=== PATIENT | male | born 1990 | race Caucasian/White ===

== ENCOUNTER 2017-02-04 22:17 | Emergency (ER) | payer BC ==
[2017-02-04] MEDS ORDERED: NS 0.9% 1000 ML* 1,000 ML IV ONE (23:07)
[2017-02-04 23:53] LABS: Hematocrit 43 % (42-52); Hemoglobin 14.9 g/dl (14.0-18.0); Mean Corpuscular HGB Conc 35 g/dl (31-36); Mean Corpuscular Hemoglobin 29 pg (27-31); Mean Corpuscular Volume 83 fL (80-94); Mean Platelet Volume 9 um3 (7.4-10.4); Red Blood Count 5.12 10^6/ul (4.0-5.4); Red Cell Distribution Width 13 % (10.5-15); White Blood Count 9.2 10^3/ul (3.5-10.8)
[2017-02-05 00:09] LABS: Albumin 4.4 g/dL (3.2-5.2); BUN/Creatinine Ratio 12.4 (8-20); C Reactive Protein 1.01 mg/L (< 5.00); Calcium 9.1 mg/dL (8.6-10.3); EGFR African American 130.9 (>60); EGFR Non-African American 101.8 (>60); Globulin 2.5 g/dL (2-4); Potassium 3.1 mmol/L (3.5-5.0); Total Bilirubin 0.5 mg/dL (0.2-1.0); Total Protein 6.9 g/dL (6.4-8.9)
[2017-02-05] MEDS ORDERED: Potassium Chloride LIQUID* 20 MEQ PACKET PO ONE (00:30)
--- NOTE | 2017-02-05 00:45 | ED ---
Kati Swartz Rebecca, scribed for Jose Rafael Cui MD on 02/04/17 at 2308 . Abdominal Pain/Male - HPI Summary HPI Summary: Pt is a 26 y/o M who presents to ED c/o R-sided abdominal pain. Pain began gradually at approximately 2130 tonight while laying in bed and is now resolved after lasting for about 25 minutes. Pain was described as severe R-sided cramping that felt "like my abdomen was exploding." Sx aggravated by nothing, alleviated by spontaneous resolution. Denies N/V/D. No prior similar episodes that were as severe as this episode. Confirms that he felt well this morning. - History of Current Complaint Chief Complaint: EDAbdPain Stated Complaint: SEVERE ABD CRAMPS Time Seen by Provider: 02/04/17 23:02 Hx Obtained From: Patient Onset/Duration: Gradual Onset, Lasting Minutes - 25 minutes, Resolved Severity Initially: Severe Severity Currently: None Pain Intensity: 0 Pain Scale Used: 0-10 Numeric Location: Other - R-sided Character: Cramping Aggravating Factor(s): Nothing Alleviating Factor(s): Spontaneous Resolution Associated Signs And Symptoms: Positive: Negative. 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 Negative: Vomiting, Diarrhea, Nausea All Other Systems Reviewed And Are Negative: Yes Physical Exam Triage Information Reviewed: Yes Vital Signs On Initial Exam: Initial Vitals Temp Pulse Resp BP Pulse Ox 98.8 F 96 18 119/82 98 02/04/17 22:28 02/04/17 22:28 02/04/17 22:28 02/04/17 22:28 02/04/17 22:28 Vital Signs Reviewed: Yes Appearance: Positive: Well-Appearing, No Pain Distress Skin: Positive: Warm Head/Face: Positive: Normal Head/Face Inspection Eyes: Positive: VIVIAN ENT: Positive: Hearing grossly normal Neck: Positive: Supple Respiratory/Lung Sounds: Positive: Clear to Auscultation, Breath Sounds Present Cardiovascular: Positive: RRR Abdomen Description: Positive: Nontender, Soft Bowel Sounds: Positive: Present Musculoskeletal: Positive: Strength/ROM Intact Neurological: Positive: Alert, Oriented to Person Place, Time Psychiatric: Positive: Affect/Mood Appropriate Diagnostics - Vital Signs Vital Signs Temp Pulse Resp BP Pulse Ox 02/04/17 22:28 98.8 F 96 18 119/82 98 - Laboratory Result Diagrams: 02/04/17 23:45 02/04/17 23:45 Lab Statement: Any lab studies that have been ordered have been reviewed, and results considered in the medical decision making process. Re-Evaluation - Re-Evaluation First Eval Re-Evaluation Time: 00:46 Change: Improved Comment: Discussed results and D/C plan. Abdominal Pain Fem Course/Dx - Course Assessment/Plan: Pt is a 26 y/o M who presents to ED c/o R-sided abdominal pain. Pain began gradually at approximately 2130 tonight while laying in bed and is now resolved after lasting for about 25 minutes. Pain was described as severe R-sided cramping that felt "like my abdomen was exploding." Sx aggravated by nothing, alleviated by spontaneous resolution. Denies N/V/D. No prior similar episodes that were as severe as this episode. Confirms that he felt well this morning. Lactic acid of 2.1, potassium of 3.1. In the ED course, pt was administered potassium chloride and fluids. Pt will be D/C to home with Dx of abdominal pain and a follow up with his PCP. He understands and agrees. - Diagnoses Provider Diagnoses: Abdominal pain Discharge - Discharge Plan Condition: Stable Disposition: HOME Patient Education Materials: Acute Abdominal Pain (ED) Referrals: Axel Daniel MD [Primary Care Provider] - 3 Days The documentation as recorded by the Kati rocha Rebecca accurately reflects the service I personally performed and the decisions made by me, Jose Rafael Cui MD.
[2017-02-05 01:40] VITALS: BP 120/76
== END 2017-02-05 01:40 | disposition home or self-care (01) ==
LOC: ED 22:17
DX: R10.9 Unspecified abdominal pain (principal)
CPT/HCPCS: 36415; 80053; 83605; 83690; 83735; 85025; 86140; 99283; A9270-GY

== ENCOUNTER 2017-02-19 07:06 | Emergency (ER) | payer BC ==
[2017-02-19] MEDS ORDERED: Ketorolac INJ* 60 MG/2 ML VIAL IM ONE (08:04)
[2017-02-19 09:03] LABS: Hematocrit 45 % (42-52); Hemoglobin 15.6 g/dl (14.0-18.0); Mean Corpuscular HGB Conc 34 g/dl (31-36); Mean Corpuscular Hemoglobin 29 pg (27-31); Mean Corpuscular Volume 84 fL (80-94); Mean Platelet Volume 9 um3 (7.4-10.4); Red Blood Count 5.42 10^6/ul (4.0-5.4); Red Cell Distribution Width 14 % (10.5-15); White Blood Count 6.7 10^3/ul (3.5-10.8)
[2017-02-19 09:15] LABS: Albumin 4.9 g/dL (3.2-5.2); BUN/Creatinine Ratio 13.3 (8-20); C Reactive Protein 1.59 mg/L (< 5.00); Calcium 9.9 mg/dL (8.6-10.3); EGFR African American 129.2 (>60); EGFR Non-African American 100.5 (>60); Globulin 2.7 g/dL (2-4); Potassium 3.7 mmol/L (3.5-5.0); Total Bilirubin 0.7 mg/dL (0.2-1.0); Total Protein 7.6 g/dL (6.4-8.9)
--- NOTE | 2017-02-19 10:45 | RAD ---
Indication: Left hip pain. 2 views of left hip and an AP view the pelvis demonstrates pelvic ring to be intact. No fracture is identified. IMPRESSION: No fracture of left hip or pelvis is noted.
[2017-02-19 11:35] LABS: Urine Bilirubin Negative (Negative); Urine Glucose Negative (Negative); Urine Nitrite Negative (Negative)
[2017-02-19 12:07] VITALS: BP 127/88
--- NOTE | 2017-02-19 17:13 | ED ---
Zarina Swartz Edward, scribed for Clifford Skaggs MD on 02/19/17 at 0731 . Lower Extremity - HPI Summary HPI Summary: 26 y/o male presents to the ED c/o gradual onset L hip pain starting last evening and has been getting progressively worse. The pain is aggravated with standing and movement of the L leg and back. It is alleviated with heat. The pain is rated 4/10 in severity at triage. Associated sx: severe ABD pain last that resolved spontaneously after 25 minutes; pt was seen in the ED for it. Denies fever. Pt denies any injury. PMHx non alcoholic liver disease. - History of Current Complaint Stated Complaint: LEFT HIP PAIN Hx Obtained From: Patient Onset of Pain: Hours - Last evening Onset/Duration: Still Present Pain Intensity: 4 Pain Scale Used: 0-10 Numeric Location: Is Discrete @ - L hip Associated Signs And Symptoms: Positive: Abdominal Pain - Last week, spontaneous resolution. 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 Neurological History: Reports: Hx Migraine - Family History Known Family History: Negative: Cardiac Disease, Hypertension, Diabetes - Social History Alcohol Use: None Hx Substance Use: No Substance Use Type: Reports: None Hx Tobacco Use: No Smoking Status (MU): Never Smoked Tobacco Review of Systems Constitutional: Negative Negative: Fever Eyes: Negative ENT: Negative Cardiovascular: Negative Respiratory: Negative Positive: Abdominal Pain Genitourinary: Negative Positive: Arthralgia - L hip pain Skin: Negative Neurological: Negative Psychological: Normal All Other Systems Reviewed And Are Negative: Yes Physical Exam Triage Information Reviewed: Yes Vital Signs On Initial Exam: Initial Vitals Temp Pulse Resp BP Pulse Ox 97.4 F 77 15 119/80 98 02/19/17 07:15 02/19/17 07:15 02/19/17 07:15 02/19/17 07:15 02/19/17 07:15 Vital Signs Reviewed: Yes Appearance: Positive: Well-Appearing, No Pain Distress Skin: Positive: Warm, Skin Color Reflects Adequate Perfusion Head/Face: Positive: Normal Head/Face Inspection Eyes: Positive: Normal ENT: Positive: Normal ENT inspection Neck: Positive: Supple, Nontender Respiratory/Lung Sounds: Positive: Clear to Auscultation, Breath Sounds Present Cardiovascular: Positive: RRR Abdomen Description: Positive: Nontender, Soft Bowel Sounds: Positive: Present Musculoskeletal: Positive: Pain @ - Tender to any ROM of L hip. Nontender in sciatic area. Neurological: Positive: Normal Psychiatric: Positive: Normal, Affect/Mood Appropriate Diagnostics - Vital Signs Vital Signs Temp Pulse Resp BP Pulse Ox 02/19/17 12:06 98.4 F 61 16 127/88 02/19/17 07:15 97.4 F 77 15 119/80 98 - Laboratory Lab Results: Lab Results 02/19/17 02/19/17 02/19/17 Range/Units 08:25 08:25 11:05 WBC 6.7 (3.5-10.8) 10^3/ul RBC 5.42 H (4.0-5.4) 10^6/ul Hgb 15.6 (14.0-18.0) g/dl Hct 45 (42-52) % MCV 84 (80-94) fL MCH 29 (27-31) pg MCHC 34 (31-36) g/dl RDW 14 (10.5-15) % Plt Count 243 (150-450) 10^3/ul MPV 9 (7.4-10.4) um3 Neut % (Auto) 53.6 (38-83) % Lymph % (Auto) 34.6 (25-47) % [place] % (Auto) 8.1 (1-9) % Eos % (Auto) 2.6 (0-6) % Baso % (Auto) 1.1 (0-2) % Absolute Neuts (auto) 3.6 (1.5-7.7) 10^3/ul Absolute Lymphs (auto) 2.3 (1.0-4.8) 10^3/ul Absolute Monos (auto) 0.5 (0-0.8) 10^3/ul Absolute Eos (auto) 0.2 (0-0.6) 10^3/ul Absolute Basos (auto) 0.1 (0-0.2) 10^3/ul Absolute Nucleated RBC 0 10^3/ul Nucleated RBC % 0 Sodium 139 (133-145) mmol/L Potassium 3.7 (3.5-5.0) mmol/L Chloride 108 (101-111) mmol/L Carbon Dioxide 24 (22-32) mmol/L Anion Gap 7 (2-11) mmol/L BUN 12 (6-24) mg/dL Creatinine 0.90 (0.67-1.17) mg/dL Est GFR ( Amer) 129.2 (>60) Est GFR (Non-Af Amer) 100.5 (>60) BUN/Creatinine Ratio 13.3 (8-20) Glucose 105 H (70-100) mg/dL Calcium 9.9 (8.6-10.3) mg/dL Total Bilirubin 0.70 (0.2-1.0) mg/dL AST 37 (13-39) U/L ALT 71 H (7-52) U/L Alkaline Phosphatase 75 (34-104) U/L C-Reactive Protein 1.59 (< 5.00) mg/L Total Protein 7.6 (6.4-8.9) g/dL Albumin 4.9 (3.2-5.2) g/dL Globulin 2.7 (2-4) g/dL Albumin/Globulin Ratio 1.8 (1-3) Urine Color Yellow Urine Appearance Cloudy Urine pH 6.0 (5-9) Ur Specific [place] 1.020 (1.010-1.030) Urine Protein Negative (Negative) Urine Ketones Negative (Negative) Urine Blood Negative (Negative) Urine Nitrate Negative (Negative) Urine Bilirubin Negative (Negative) Urine Urobilinogen Negative (Negative) Ur Leukocyte Esterase Negative (Negative) Urine Glucose Negative (Negative) Result Diagrams: 02/19/17 08:25 02/19/17 08:25 Lab Statement: Any lab studies that have been ordered have been reviewed, and results considered in the medical decision making process. - Radiology HIP XR Xray Interpretation: No Acute Changes - NO FRACTURE OF L HIP OR PELVIS NOTED. ED PHYSICIAN AGREES Radiology Interpretation Completed By: Radiologist Re-Evaluation - Re-Evaluation 1 Re-Evaluation Time: 10:51 Comment: Discussed XR results Lower Extremity Course/Dx - Course Course Of Treatment: Mr. Hanley presented with an atypical pain in his left hip for a couple of days. He reported no trauma aside from standing for a long period. He was afebrile with normal vitals. He has a history of "mild" Ehler Danlos. His W/U was negative. There was no evidence for a septic joint or a subluxed joint. - Diagnoses Provider Diagnoses: Hip pain Discharge - Discharge Plan Condition: Stable Disposition: HOME Prescriptions: HYDROcodone/ACETAMIN 5-325 MG* [[place] 5-325 TAB*] 1 tab PO Q6H PRN #20 tab MDD 4 PRN Reason: Pain Patient Education Materials: Hip Pain (ED) Referrals: Axel Daniel MD [Primary Care Provider] - 3 Days (PLEASE F/U IN 2-3 DAYS) Additional Instructions: ENCOURAGE IBUPROFEN The documentation as recorded by the Zarina rocha Edward accurately reflects the service I personally performed and the decisions made by , Clifford Skaggs MD.
== END 2017-02-19 12:06 | disposition home or self-care (01) ==
LOC: ED 07:06
DX: M25.552 Pain in left hip (principal); Q79.6 Ehlers-Danlos syndromes; K76.9 Liver disease, unspecified
CPT/HCPCS: 36415; 80053; 81003; 85025; 86140; 96372; 99282; J1885

== ENCOUNTER 2017-09-09 08:19 | Emergency (ER) | payer BC ==
[2017-09-09] MEDS ORDERED: NS 0.9% 1000 ML* 2,000 ML IV ONE (08:44)
[2017-09-09] MEDS ORDERED: Ketorolac INJ* 30 MG/ML 1 ML VIAL IV PUSH ONE (08:46)
[2017-09-09 09:14] LABS: ABS Basophils 0.1 10^3/ul (0-0.2); ABS Eosinophils 0.1 10^3/ul (0-0.6); ABS Lymphocytes 1.4 10^3/ul (1.0-4.8); ABS Monocytes 1.2 10^3/ul (0-0.8); ABS Neutrophils 13.4 10^3/ul (1.5-7.7); ABS Nucleated RBC 0.1 10^3/ul; Eosinophil % 0.6 % (0-6); Hematocrit 45 % (42-52); Hemoglobin 15.6 g/dl (14.0-18.0); Lymphocyte % 8.7 % (25-47); Mean Corpuscular HGB Conc 34 g/dl (31-36); Mean Corpuscular Hemoglobin 28 pg (27-31); Mean Corpuscular Volume 82 fL (80-94); Mean Platelet Volume 8.2 um3 (7.4-10.4); Nucleated Red Blood Cells % 0.7; Platelet Count 247 10^3/ul (150-450); Red Blood Count 5.51 10^6/ul (4.0-5.4); Red Cell Distribution Width 13 % (10.5-15); White Blood Count 16.1 10^3/ul (3.5-10.8)
[2017-09-09] MEDS ORDERED: Acetaminophen TAB* 325 MG PO ONE (09:25)
[2017-09-09] MEDS ORDERED: Amoxicillin/Clavulanate TAB* 875 MG PO ONE (09:31)
--- NOTE | 2017-09-09 09:44 | RAD ---
INDICATION: Cough. COMPARISON: Comparison is made with a prior study from April 05, 2009. TECHNIQUE: Dual-energy PA and lateral views of the chest were obtained. FINDINGS: The heart is within normal limits in size. Mediastinal and hilar contours appear within normal limits. The lungs are clear. No pleural effusion is present. IMPRESSION: NO EVIDENCE FOR ACTIVE CARDIOPULMONARY DISEASE.
[2017-09-09 09:47] LABS: EGFR Non-African American 111.1 (>60)
[2017-09-09 10:18] LABS: Urine Appearance Clear; Urine Blood Negative (Negative); Urine Color Yellow; Urine Ketones Negative (Negative); Urine Protein Negative (Negative); Urine Specific Gravity 1.016 (1.010-1.030); Urine Urobilinogen Negative (Negative)
[2017-09-09 10:48] VITALS: BP 116/61
--- NOTE | 2017-09-10 08:01 | ED ---
Naveen Swartz Angela, scribed for Norm Carroll MD on 09/09/17 at 0842 . Influenza-Like Illness - HPI Summary HPI Summary: This pt is a 27 y/o male, accompanied by mother, presenting to [facility] c/o influenza like symptoms since last night. Pt reports he has a sore throat, chills, fever, myalgia. He additionally notes he feels dehydrated, even after drinking fluids. Pt states he was not able to sleep last night secondary to his symptoms. Pt denies runny nose. He is currently on Keppra BID. - History of Current Complaint Chief Complaint: EDFluSymptoms Time Seen by Provider: 09/09/17 08:35 Hx Obtained From: Patient Onset/Duration: Lasting Days, Still Present Severity: Moderate Associated Signs & Symptoms: Fever, F/C - chills, Myalgia, Sore Throat - Allergy/Home Medications Allergies/Adverse Reactions: Allergies Allergy/AdvReac Type Severity Reaction Status Date / Time No Known Allergies Allergy Verified 09/09/17 08:28 Home Medications: Home Medications levETIRAcetam TAB* [Keppra TAB*] 1,000 mg PO BID 09/09/17 [History Confirmed 11/21] PMH/Surg Hx/FS Hx/Imm Hx Endocrine/Hematology History: Reports: Other Endocrine/Hematological Disorders - Non-alcoholic liver disease Denies: Hx Diabetes Cardiovascular History: Denies: Hx Hypertension, Hx Pacemaker/ICD History: Denies: Hx Renal Disease Musculoskeletal History: Reports: 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 Negative: Nasal Discharge Cardiovascular: Negative Genitourinary: Negative Positive: Myalgia Skin: Negative All Other Systems Reviewed And Are Negative: Yes Physical Exam - Summary Physical Exam Summary: VITAL SIGNS: Reviewed. GENERAL: Patient is a well-developed and nourished male who is lying comfortable in the stretcher. Patient is not in any acute respiratory distress. Pt is dehydrated. HEAD AND FACE: No signs of trauma. No ecchymosis, hematomas or skull depressions. No sinus tenderness. EYES: PERRLA, EOMI x 2, No injected conjunctiva, no nystagmus. EARS: Hearing grossly intact. Ear canals and tympanic membranes are within normal limits. MOUTH: Oropharynx within normal limits. Dry oral mucosa. NECK: Supple, trachea is midline, no adenopathy, no JVD, no carotid bruit, no c- spine tenderness, neck with full ROM. CHEST: Symmetric, no tenderness at palpation LUNGS: Clear to auscultation bilaterally. No wheezing or crackles. CVS: Regular rate and rhythm, S1 and S2 present, no murmurs or gallops appreciated. ABDOMEN: Soft, non-tender. No signs of distention. No rebound no guarding, and no masses palpated. Bowel sounds are normal. EXTREMITIES: FROM in all major joints, no edema, no cyanosis or clubbing. NEURO: Alert and oriented x 3. No acute neurological deficits. Speech is normal and follows commands. SKIN: Dry and warm Triage Information Reviewed: Yes Vital Signs On Initial Exam: Initial Vitals Temp Pulse Resp BP Pulse Ox 99.8 F 91 18 119/73 96 09/09/17 08:29 09/09/17 08:29 09/09/17 08:29 09/09/17 08:29 09/09/17 08:29 Vital Signs Reviewed: Yes Diagnostics - Vital Signs Vital Signs Temp Pulse Resp BP Pulse Ox 09/09/17 08:29 99.8 F 91 18 119/73 96 - Laboratory Result Diagrams: 09/09/17 09:04 09/09/17 09:04 Lab Statement: Any lab studies that have been ordered have been reviewed, and results considered in the medical decision making process. - Radiology Chest XR Xray Interpretation: No Acute Changes - IMPRESSION: No evidence for active cardiopulmonary disease. Dr. Carroll has reviewed this radiology report. Radiology Interpretation Completed By: Radiologist Re-Evaluation - Re-Evaluation First Eval Re-Evaluation Time: 10:07 Comment: I reviewed the lab and XR results with the pt and mother. Pt will be discharged home. Flu Symptom Course/Dx - Course Assessment/Plan: This pt is a 27 y/o male, accompanied by mother, [facility] like symptoms since last night. Pt reports he has a sore throat, chills, fever, myalgia. He additionally notes he feels dehydrated, even after drinking fluids. Pt states he was not able to sleep last night secondary to his symptoms. Pt denies runny nose. He is currently on Keppra BID. Test results without any significant abnormalities except for WBC of 16.1, CRP of 13.43. Urinalysis is negative for UTI. Influenza A and B are both negative. Rapid strep test is positive. In the ED course the pt was given IV fluids, Tylenol for the fever, toradol for the pain, and Augmentin. After these medications the pt is feeling better. Therefore he will be discharged to home with a prescription for Augmentin and follow up from his PCP. I discussed all the findings and test results with the patient and his mother. All questions were answered to patient satisfaction. There were no further complaints or concerns. He is instructed to return to the ED for any worsening or new symptoms. Pt is hemodynamically stable, alert and oriented x3. - Diagnoses Provider Diagnoses: Strep pharyngitis Discharge - Sign-Out/Discharge Documenting (check all that apply): Discharge - discharge to home - Discharge Plan Condition: Stable Disposition: HOME Prescriptions: Amoxicillin/Clavulanate TAB* [Augmentin TAB 875*] 875 mg PO BID #9 tab Patient Education Materials: Strep Throat (ED) Referrals: Axel Daniel MD [Primary Care Provider] - 3 Days Additional Instructions: Please follow up with your primary care provider. RETURN TO THE ED FOR ANY NEW OR WORSENING SYMPTOMS. The documentation as recorded by the Naveen rocha Angela accurately reflects the service I personally performed and the decisions made by me, Norm Carroll MD.
== END 2017-09-09 10:44 | disposition home or self-care (01) ==
LOC: ED 08:19
DX: J02.0 Streptococcal pharyngitis (principal); K76.9 Liver disease, unspecified; Q79.6 Ehlers-Danlos syndromes; F41.0 Panic disorder [episodic paroxysmal anxiety]
CPT/HCPCS: 36415; 71046; 80053; 81003; 83605; 85025; 86140; 87040; 87502; 87651; 96374; 99283; A9270-GY; J1885

== ENCOUNTER 2020-03-10 09:05 | Observation (INO) ==
[2020-03-10 09:54] LABS: ABS Basophils 0.1 10^3/ul (0-0.2); ABS Eosinophils 0.3 10^3/ul (0-0.6); ABS Lymphocytes 2.1 10^3/ul (1.0-4.8); ABS Monocytes 0.6 10^3/ul (0-0.8); Eosinophil % 4.2 %; Hematocrit 44 % (42-52); Lymphocyte % 34.7 %; Mean Corpuscular HGB Conc 34 g/dL (31-36); Mean Corpuscular Hemoglobin 29 pg (27-31); Mean Corpuscular Volume 84 fL (80-94); Mean Platelet Volume 8.4 fL (7.4-10.4); Nucleated Red Blood Cells % 0.1; Platelet Count 212 10^3/uL (150-450); Red Blood Count 5.21 10^6 /uL (4.18-5.48); Red Cell Distribution Width 13 % (10-15); White Blood Count 6.1 10^3/uL (3.5-10.8)
[2020-03-10 10:12] LABS: ALT 19 U/L (7-52); AST 18 U/L (13-39); Albumin 4.5 g/dL (3.2-5.2); Albumin/Globulin Ratio 1.8 (1-3); Alkaline Phosphatase 54 U/L (34-104); Anion Gap 7 mmol/L (2-11); BUN/Creatinine Ratio 27.1 (8-20); Blood Urea Nitrogen 16 mg/dL (6-24); CO2 Carbon Dioxide 26 mmol/L (22-32); Calcium 9.1 mg/dL (8.6-10.3); Chloride 109 mmol/L (101-111); EGFR African American 193.9 (>60); EGFR Non-African American 160.2 (>60); Globulin 2.5 g/dL (2-4); Glucose 93 mg/dL (70-100); Magnesium 1.8 mg/dL (1.9-2.7); Potassium 3.2 mmol/L (3.5-5.0); Sodium 142 mmol/L (135-145)
[2020-03-10 10:14] LABS: Troponin I 0.01 ng/mL (<0.03)
[2020-03-10 10:35] LABS: Alcohol, S < 10 mg/dL (<10)
[2020-03-10 10:50] LABS: TSH Ultra Thyroid Stim Horm 2.13 mcIU/mL (0.34-5.60)
[2020-03-10 11:02] LABS: Vitamin B12 586 pg/mL (180-914)
[2020-03-10 12:30] LABS: Urine Appearance Clear; Urine Bilirubin Negative (Negative); Urine Blood Negative (Negative); Urine Color Yellow; Urine Glucose Negative (Negative); Urine Ketones Negative (Negative); Urine Nitrite Negative (Negative); Urine Protein Negative (Negative); Urine Specific Gravity 1.017 (1.010-1.030); Urine Urobilinogen Negative (Negative)
[2020-03-10] MEDS ORDERED: Magnesium Sulfate IV 1GM/100ML 1 GM/100 ML BAG IV ONE (14:39)
[2020-03-10] MEDS ORDERED: Senna TAB 8.6 mg TAB PO PRN (15:09)
[2020-03-10] MEDS ORDERED: Ondansetron 4 mg VIAL 2 MG/ML 2 ml VIAL IV PRN (15:09)
[2020-03-10 15:38] LABS: C Reactive Protein 1.51 mg/L (<8.01); Creatine Kinase 149 U/L (10-223)
[2020-03-10] MEDS: KCL 20 MEQ/100 ML IVPREMIX 20 MEQ/100 ML BAG IV SCH ×2 (17:09→21:23)
[2020-03-10 19:46] LABS: Erythrocyte Sed Rate 2 mm/Hr (0-14)
[2020-03-10] MEDS ORDERED: Gadoteridol (CONTRAST) 279.3 MG/ML 10 ML IV ONE (20:03)
[2020-03-11 06:23] LABS: ABS Basophils 0.1 10^3/ul (0-0.2); ABS Eosinophils 0.3 10^3/ul (0-0.6); ABS Monocytes 0.7 10^3/ul (0-0.8); ABS Neutrophils 2.8 10^3/ul (1.5-7.7); Eosinophil % 4.5 %; Hematocrit 41 % (42-52); Hemoglobin 14.3 g/dL (14.0-18.0); Lymphocyte % 43.6 %; Mean Corpuscular HGB Conc 35 g/dL (31-36); Mean Corpuscular Hemoglobin 29 pg (27-31); Mean Corpuscular Volume 84 fL (80-94); Mean Platelet Volume 8.8 fL (7.4-10.4); Platelet Count 199 10^3/uL (150-450); Red Blood Count 4.88 10^6 /uL (4.18-5.48); Red Cell Distribution Width 13 % (10-15); White Blood Count 6.8 10^3/uL (3.5-10.8)
[2020-03-11] MEDS ORDERED: Multivitamins/Minerals TAB PO SCH (09:00)
[2020-03-11 13:59] LABS: Rheumatoid Factor < 10 IU/mL (<15)
[2020-03-11 14:14] LABS: Folate > 20.00 ng/mL (>3.99)
[2020-03-11 15:28] VITALS: BP 123/78
[2020-03-12 13:03] LABS: Levetiracetam 16.2 mcg/mL
[2020-03-13 18:33] LABS: Anaplasma phagocytophilum Negative (Negative); B. miyamotoi PCR, B Negative (Negative); Babesia divergens/MO-1 Negative (Negative); Babesia ducani Negative (Negative); Ehrlichia chaffeensis Negative (Negative); Ehrlichia ewingii/canis Negative (Negative); Ehrlichia muris eauclairensis Negative (Negative)
== END 2020-03-11 17:45 | disposition home or self-care (01) ==
LOC: ED 09:05 → MED 15:09 → INTOOBSV 15:09 → MED 16:09
PROVIDERS: ADMIT Physician Assistant; ATTEND Internal Medicine